=== PATIENT | female | born 1985 | race Two or more races ===

== ENCOUNTER 2017-01-18 21:18 | Emergency (ER) | payer SELFPAY ==
[~2017-01-18] VITALS: Ht 157.5 cm; Wt 56.0 kg
[2017-01-18] MEDS ORDERED: HYDROCODONE/ACETAMINOPHEN 5/325MG TABLET PO STA (22:31)
[2017-01-19 02:26] VITALS: BP 125/72
== END 2017-01-19 02:51 | disposition home or self-care (01) ==
LOC: ER 21:18
DX: S16.1XXA Strain of muscle, fascia and tendon at neck level, initial encounter (principal); S39.012A Strain of muscle, fascia and tendon of lower back, initial encounter; S29.012A Strain of muscle and tendon of back wall of thorax, initial encounter; S93.602A Unspecified sprain of left foot, initial encounter; V43.52XA Car driver injured in collision with other type car in traffic accident, initial encounter; Y93.89 Activity, other specified; Y92.488 Other paved roadways as the place of occurrence of the external cause
CPT/HCPCS: 72040; 72070; 72100; 72170; 73610; 73630; 81025; 99284; Z7610